=== PATIENT | male | born 1965 | race African-American/Black ===

== ENCOUNTER 2019-12-20 13:06 | Inpatient (IN) | payer BC, OTHER ==
--- NOTE | 2019-12-20 13:34 | BHS.RME ---
Substance Use & Tx History - Substance Use History Alcohol Substance amount: 3 beers x 24 ounces Frequency of use: Daily Substance route: Oral Date of Last Use: 12/20/19 Heroin Substance amount: 2 bags Frequency of use: Less than 5 times a year Date of Last Use: 12/13/19 (first use one week ago) Cocaine-Crack Substance amount: $100 Frequency of use: Daily Substance route: Smoking Date of Last Use: 12/19/19 Cannabis Substance amount: 3 pulls Frequency of use: More than 3 times per week Substance route: Smoking Date of Last Use: 12/18/19 Nicotine Substance amount: 1.5 packs Frequency of use: Daily Substance route: Smoking Date of Last Use: 12/20/19 Physical/Psych/Mental Status - Behavior General Behavior: Increased activity (restlessness, agitation) Eye Contact: Normal - Cooperativeness Cooperativeness: Cooperative - Thinking Thought Processes: Tight Thought content: Future oriented - Physical Health Problems Is patient presently having any pain?: Yes (low back pain, began today) Does patient presently have any injuries (include location): No Does patient currently have a fever: No COWS - Scale Resting Pulse: 1= [place] 81-100 Sweatin= No chills or Flushing Restless Observation: 1= Difficult to Sit Still Pupil Size: 0= Normal to Room Light Bone or Joint Aches: 1= Mild Discomfort Runny Nose/ Eye Tearin= None GI Upset > 30mins: 0= None Tremor Observation: 0= None Yawning Observation: 0= None Anxiety or Irritability: 1=Feels Anxious/Irritable Goose Flesh Skin: 0=Smooth Skin COWS Score: 4 CIWA Nausea/Vomitin-No Nausea/No Vomiting Muscle Tremors: None Anxiety: 1-Mildly Anxious Agitation: 1-Slight > Activity Paroxysmal Sweats: No Perspiration Orientation: 0-Oriented Tacttile Disturbances: 0-None Auditory Disturbances: 0-None Visual Disturbances: 0-None Headache: 0-None Present CIWA-Ar Total Score: 2
--- NOTE | 2019-12-20 15:16 | HP ---
<Javi Cote - Last Filed: 12/20/19 15:44> COWS - Scale Resting Pulse: 1= [place] 81-100 Sweatin= No chills or Flushing Restless Observation: 0= Sits Still Pupil Size: 0= Normal to Room Light Bone or Joint Aches: 1= Mild Discomfort Runny Nose/ Eye Tearin= Runny Nose/Eyes GI Upset > 30mins: 0= None Tremor Observation: 0= None Yawning Observation: 0= None Anxiety or Irritability: 0= None Goose Flesh Skin: 0=Smooth Skin COWS Score: 4 CIWA Score Nausea/Vomitin-No Nausea/No Vomiting Muscle Tremors: None Anxiety: 1-Mildly Anxious Agitation: 1-Slight > Activity Paroxysmal Sweats: No Perspiration Orientation: 0-Oriented Tacttile Disturbances: 0-None Auditory Disturbances: 0-None Visual Disturbances: 0-None Headache: 0-None Present CIWA-Ar Total Score: 2 - Admission Criteria OASAS Guidelines: Admission for Medically Managed Detox: Requires at least one of the followin. CIWA greater than 12 2. Seizures within the past 24 hours 3. Delirium tremens within the past 24 hours 4. Hallucinations within the past 24 hours 5. Acute intervention needed for co occurring medical disorder 6. Acute intervention needed for co occurring psychiatric disorder 7. Severe withdrawal that cannot be handled at a lower level of care (continued vomiting, continued diarrhea, abnormal vital signs) requiring intravenous medication and/or fluids 8. Admitting History and Physical - Admission Chief Complaint: Patient presents to [facility] requestion for rehab. He has just completed detox. History of Present Illness: Patient presents to [facility] requestion for rehab. He has just completed detox. PMH: NONE PSH:NONE PSYCH:Bipolar,schizophrenia,prelexa compliant SOCIAL/DOMICILED: [facility] in [place] LEGAL:None Substance Use & Tx History - Substance Use History Alcohol Substance amount: 3 beers x 24 ounces Frequency of use: Daily Substance route: Oral Date of Last Use: 12/20/19 First use, age 14 Heroin Substance amount: 2 bags Frequency of use: Less than 5 times a year Date of Last Use: 12/13/19 first use was last week Cocaine-Crack Substance amount: $100 Frequency of use: Daily Substance route: Smoking Date of Last Use: 12/19/19 First use, 17 Cannabis Substance amount: 3 pulls Frequency of use: More than 3 times per week Substance route: Smoking Date of Last Use: 12/18/19 First use, age 13 Nicotine Substance amount: 1.5 packs Frequency of use: Daily Substance route: Smoking Date of Last Use: 12/20/19 First use, age 15 History Source: Patient Limitations to Obtaining History: No Limitations - Smoking History Smoking history: Current every day smoker Have you smoked in the past 12 months: Yes Aproximately how many cigarettes per day: 1.5 - Alcohol/Substance Use Hx Alcohol Use: Yes Number of Drinks Daily: 3 (beer) History of Substance Use: reports: Cocaine Date of Last Use: 12/19/19 (crack) - Social History Usual Living Arrangement: Yes: Other ([facility]) Admission [facility] - [facility] Chief Complaint: Patient presents to [facility] today requestion for rehab. He has just completed detox. Patient History - Smoking Cessation Smoking history: Current every day smoker Have you smoked in the past 12 months: Yes Aproximately how many cigarettes per day: 1.5 Cigars Per Day: 30 Hx Chewing Tobacco Use: No Initiated information on smoking cessation: Yes 'Breaking Loose' booklet given: 12/20/19 Admission Physical Exam [facility] Physical General Appearance: Yes: Within Normal Limits, No Apparent Distress, Nourished, Appropriately Dressed, Intoxicated HEENTM: Yes: Within Normal Limits, EOMI, Normal ENT Inspection, Normocephalic, Normal Voice, BRIANNA Respiratory: Yes: Within Normal Limits, Chest Non-Tender, Lungs Clear, Normal Breath Sounds, No Respiratory Distress, No Accessory Muscle Use Neck: Yes: Within Normal Limits, No masses,lesions,Nodules, Trachea in good position Breast: Yes: Breast Exam Deferred Cardiology: Yes: Within Normal Limits, Regular Rhythm, Regular Rate, S1, S2 Abdominal: Yes: Within Normal Limits, Normal Bowel Sounds, Non Tender, Flat, Soft Genitourinary: Yes: Within Normal Limits Back: Yes: Within Normal Limits, Normal Inspection Musculoskeletal: Yes: Within Normal Limits, full range of Motion, Gait Steady, Back pain (complains of mild back pain right above left ischial tuberosity) Extremities: Yes: Within Normal Limits, Normal Capillary Refill, Normal Inspection, Normal Range of Motion, Non-Tender Neurological: Yes: Within Normal Limits, Fully Oriented, Alert, Motor Strength 5/5 Integumentary: Yes: Within Normal Limits, Normal Color - Diagnostic (1) Alcohol dependence, uncomplicated Current Visit: Yes Status: Chronic (2) Heroin dependence Current Visit: Yes Status: Chronic (3) Crack cocaine use Current Visit: Yes Status: Chronic (4) Marijuana dependence Current Visit: Yes Status: Chronic (5) Nicotine dependence Current Visit: Yes Status: Chronic Qualifiers: Nicotine product type: cigarettes Substance use status: uncomplicated Qualified Code(s): F17.210 - Nicotine dependence, cigarettes, uncomplicated (6) Bipolar 1 disorder Current Visit: Yes Status: Chronic (7) Schizophrenia Current Visit: Yes Status: Chronic Cleared for Admission [facility] - Detox or Rehab S Level of Care: Medically Supervised Detox Regimen/Protocol: Not Applicable Claeared for Rehab Admission: Yes Screened but not Admitted - Documentation of Visit Screened but not Admitted: No Left Prior to Completion of Assessment: No Insurance Authorization Denied: No Patient Does Not Meet Criteria for Admission: No Level of Care Recommended at this Time: Other ([facility] rehab admission) Alternative Treatment/Assisted Info Provided: No Breathalyzer - Breathalyzer Breathalyzer: 0 Urine Drug Screen - Test Device Lot number: [id number] Expiration date: 02/05/21 - Control Is test valid?: Yes - Results Drug screen NEGATIVE: No Urine drug screen results: GONZALO-Cocaine Inpatient Rehab Admission - Rehab Decision to Admit Inpatient rehab admission?: Yes - Initial Determination Are CD services needed?: Yes Free of communicable disease: Yes Not in need of hospitalization: Yes - Rehab Admission Criteria Previous failed treatment: Yes Poor recovery environment: Yes Comorbidities: Yes Lacks judgement: No Patient is meeting Inpatient Rehab admission criteria:: Yes <Elizabeth Bender - Last Filed: 12/22/19 14:34> CIWA Score - Admission Criteria OASAS Guidelines: Admission for Medically Managed Detox: Requires at least one of the followin. CIWA greater than 12 2. Seizures within the past 24 hours 3. Delirium tremens within the past 24 hours 4. Hallucinations within the past 24 hours 5. Acute intervention needed for co occurring medical disorder 6. Acute intervention needed for co occurring psychiatric disorder 7. Severe withdrawal that cannot be handled at a lower level of care (continued vomiting, continued diarrhea, abnormal vital signs) requiring intravenous medication and/or fluids 8. Admission ROS [facility] - HPI Exam Limitations: No Limitations - Ebola screening Have you traveled outside of the country in the last 21 days: No Have you been sick,other than usual withdrawal symptoms: No Do you have a fever: No - Review of Systems Constitutional: No Symptoms Reported EENT: reports: No Symptoms Reported Respiratory: reports: No Symptoms reported Cardiac: reports: No Symptoms Reported GI: reports: Nausea, Vomiting : reports: No Symptoms Reported Musculoskeletal: reports: Back Pain Endocrine: reports: No Symptoms Reported Psychiatric: reports: Anxious Admission Physical Exam S - Vital Signs Vital Signs: Vital Signs - 24 hr 12/21/19 12/22/19 12/22/19 20:25 07:13 07:15 Temperature 97.3 F L Pulse Rate 73 Respiratory 16 Rate Blood Pressure 132/89 O2 Sat by Pulse 97 98 98 Oximetry (%) 12/22/19 14:32 Temperature Pulse Rate Respiratory Rate Blood Pressure O2 Sat by Pulse 98 Oximetry (%)
[2019-12-20] MEDS ORDERED: ACETAMINOPHEN 325 MG TABLET (FP) PO PRN (15:50)
[2019-12-20] MEDS ORDERED: IBUPROFEN 400 MG TABLET (FP) PO PRN (15:50)
[2019-12-20] MEDS ORDERED: NICOTINE POLACRILEX 2 MG GUM BC PRN (15:50)
[2019-12-20] MEDS ORDERED: MAGNESIUM CITRATE 300 ML BOTTLE PO PRN (15:50)
[2019-12-20] MEDS ORDERED: guaiFENesin 200 MG/10 ML 10 ML UNIT-DOSE CUPS PO PRN (15:50)
[2019-12-20] MEDS ORDERED: LOPERAMIDE HCL 2 MG CAPSULE PO PRN (15:50)
[2019-12-20] MEDS ORDERED: P-EPHED 60MG/TRIPROLIDI 2.5MG TABLET PO PRN (15:50)
[2019-12-20] MEDS ORDERED: MAGNESIUM HYDROX 2400MG/30ML ORAL SUSPENSION 30 ML CUP PO PRN (15:50)
[2019-12-20] MEDS ORDERED: MAG HYDROX/AL HYDROX/SIMETH 30 ML UNIT-DOSE CUP PO PRN (15:50)
[2019-12-20 16:16] VITALS: BMI 29.2
[2019-12-20] MEDS ORDERED: TUBERCULIN PPD 5 TU/0.1ML VIAL ID ONE (18:22)
[2019-12-20] MEDS: hydrOXYzine PAMOATE 25 MG CAPSULE (FP) PO SCH ×2 (18:36→21:37)
[2019-12-20] MEDS: NICOTINE 21 MG/24 HOURS TOPICAL PATCH TD SCH (18:36)
[2019-12-20] MEDS: THIAMINE HCL 100 MG TABLET (FP) PO SCH (21:36)
[2019-12-20] MEDS: MELATONIN 5 MG TABLETS PO SCH (21:37)
[2019-12-20 23:14] LABS: PH,URINE 5.5 (5.0-8.0); URINE APPEARANCE CLEAR; URINE BILIRUBIN NEGATIVE (NEGATIVE); URINE COLOR YELLOW; URINE GLUCOSE (UA) NEGATIVE (NEGATIVE); URINE KETONE NEGATIVE (NEGATIVE); URINE LEUK ESTERASE NEGATIVE (NEGATIVE); URINE NITRITE NEGATIVE (NEGATIVE); URINE PROTEIN NEGATIVE (NEGATIVE); URINE UROBILINOGEN 0.2 mg/dL (0.2-1.0)
[2019-12-21] MEDS: hydrOXYzine PAMOATE 25 MG CAPSULE (FP) PO SCH ×3 (06:10→13:06)
--- NOTE | 2019-12-21 09:34 | CONSULT ---
[facility] Psychiatric Consult - Data Date of interview: 12/21/19 Admission source: [facility] Identifying data: Mr Yousif is a 54 years old Black male, unemployed receiving SSD living in an SRO referred from [facility] on 12/20/19 for inpatient rehabilitation treatment for alcohol, opioid, cocaine and cannabis Substance Abuse History: Reports history of alcohol, heroin, crack cocaine and marijuana use. refer to addiction counselor's summary for further information Medical History: Unremarkable. Smokes cigaettes 1.5 ppd Psychiatric History: This is patient's first admission to this faciliy. He reports that his firt psychiatric contact occured at age 16 when he was admitted to [facility] in [place], [place] for paranoid delusions. He was diagnosed with Schizophrenia and started on Fluphenazine. Reports multiple subsequent psychiatric hospitalizations at various institutions including [facility], [facility] and [facility]. Reports that dana arevalo currently sees a staff psychiatrist on site at his residence([facility]) and he is prescribed Fluphenazine 2.5 mg/bid. Denies previous suicidal attempt. At present, denies experiencing psychotic symptoms, S/H ideations. However, reports sleping porly Physical/Sexual Abuse/Trauma History: Denies history of abuse as a child or DV relationship as an adult Mental Status Exam - Mental Status Exam Alert and Oriented to: Time, Place, Person Cognitive Function: Fair Patient Appearance: Disheveled Mood: Hopeful, Euthymic Affect: Appropriate Patient Behavior: Cooperative Speech Pattern: Clear Voice Loudness: Normal Thought Process: Intact, Goal Oriented Hallucinations: Denies Suicidal Ideation: Denies Homicidal Ideation: Denies Insight/Judgement: Poor Sleep: Poorly Appetite: Good Muscle strength/Tone: Normal Gait/Station: Normal Psychiatric Findings - Problem List (Sayre 1, 2,3) (1) Paranoid schizophrenia Current Visit: Yes Status: Chronic (2) Substance-induced sleep disorder Current Visit: Yes Status: Acute (3) Alcohol dependence, uncomplicated Current Visit: Yes Status: Acute (4) Opioid dependence Current Visit: Yes Status: Acute (5) Cocaine dependence Current Visit: Yes Status: Acute (6) Cannabis dependence Current Visit: Yes Status: Acute (7) Nicotine dependence Current Visit: Yes Status: Chronic Qualifiers: Nicotine product type: cigarettes Substance use status: uncomplicated Qualified Code(s): F17.210 - Nicotine dependence, cigarettes, uncomplicated - Initial Treatment Plan Initial Treatment Plan: 1) Continue Flupenazine 2.5 mg po BID. 2) Continue inpatient rehabilitation
[2019-12-21] MEDS: PRENATAL VITAMINS W/ FOLIC ACID TABLET (FP) PO SCH (09:54)
[2019-12-21] MEDS: NICOTINE 21 MG/24 HOURS TOPICAL PATCH TD SCH (09:55)
[2019-12-21 11:22] LABS: HEMATOCRIT 44.8 % (35.4-49); HEMOGLOBIN 14.8 GM/dL (11.7-16.9); MCH 32.9 pg (25.7-33.7); MCHC 33.1 g/dl (32.0-35.9); MEAN CELL VOLUME 99.6 fl (80-96); RDW 13.8 % (11.9-15.9); WHITE BLOOD COUNT 9.1 K/mm3 (4.0-10.0)
[2019-12-21 11:28] LABS: ALBUMIN 3.8 g/dl (3.4-5.0); BILIRUBIN,TOTAL 0.2 mg/dL (0.2-1); CALCIUM 8.7 mg/dL (8.5-10.1); POTASSIUM 3.9 mmol/L (3.5-5.1); TOT PROT 6.9 g/dl (6.4-8.2)
[2019-12-21 12:23] LABS: SICKLE CELL SCREEN NEGATIVE (NEGATIVE)
[2019-12-21] MEDS: hydrOXYzine PAMOATE 25 MG CAPSULE (FP) PO PRN (21:14)
[2019-12-21] MEDS: THIAMINE HCL 100 MG TABLET (FP) PO SCH (21:14)
[2019-12-21] MEDS: MELATONIN 5 MG TABLETS PO SCH (21:14)
[2019-12-22] MEDS: NICOTINE 21 MG/24 HOURS TOPICAL PATCH TD SCH (09:44)
[2019-12-22] MEDS: PRENATAL VITAMINS W/ FOLIC ACID TABLET (FP) PO SCH (09:45)
[2019-12-22] MEDS: hydrOXYzine PAMOATE 25 MG CAPSULE (FP) PO PRN (18:04)
[2019-12-22] MEDS ORDERED: PT OWN MED DRAWER 7, Y5N ONE (20:31)
[2019-12-22] MEDS: THIAMINE HCL 100 MG TABLET (FP) PO SCH (21:44)
[2019-12-22] MEDS: MELATONIN 5 MG TABLETS PO SCH (21:44)
[2019-12-23] MEDS ORDERED: PT OWN MED DRAWER 7, Y5N ONE ×2 (08:22→19:21)
[2019-12-23] MEDS: NICOTINE 21 MG/24 HOURS TOPICAL PATCH TD SCH (09:23)
[2019-12-23] MEDS: PRENATAL VITAMINS W/ FOLIC ACID TABLET (FP) PO SCH (09:23)
--- NOTE | 2019-12-23 16:18 | PN ---
Psychiatric Progress Note Vital Signs: Vital Signs Period Temp Pulse Resp BP Sys/Reyes Pulse Ox Last 24 Hr 97.1 F 76 18 127/77 96-98 Date of Session: 12/23/19 Chief Complaint:: "i'm not sleeping well." HPI: Patient admitted to [facility] for treatment of alcohol, opioid, cocaine and cannabis dependence. Consultation ordered due to patient c/o insomnia. ROS: Patient laying in bed. Alert +oriented X3. Current Medications: Active Medications Generic Name Dose Route Start Last Admin Trade Name Freq PRN Reason Stop Dose Admin Acetaminophen 650 mg 12/20/19 15:50 Tylenol - PO Q4H PRN FEVER Al Hydroxide/Mg Hydroxide 30 ml 12/20/19 15:50 Mylanta Oral Suspension - PO Q6H PRN DYSPEPSIA Fluphenazine HCl 2.5 mg 12/21/19 10:00 12/23/19 09:23 Prolixin - PO 2.5 mg BID GADIEL Administration Guaifenesin 10 ml 12/20/19 15:50 Robitussin - PO Q6H PRN COUGH Hydroxyzine Pamoate 25 mg 12/21/19 13:15 12/22/19 18:04 Vistaril - PO 25 mg Q4HWA PRN Administration ANXIETY Ibuprofen 400 mg 12/20/19 15:50 Motrin - PO Q6H PRN Pain level 4-6 Loperamide HCl 4 mg 12/20/19 15:50 Imodium - PO Q6H PRN DIARRHEA Magnesium Citrate 300 ml 12/20/19 15:50 Citroma - PO Q48H PRN CONSTIPATION Magnesium Hydroxide 30 ml 12/20/19 15:50 Milk Of Magnesia - PO DAILY PRN CONSTIPATION Melatonin 5 mg 12/20/19 22:00 12/22/19 21:44 Melatonin PO 5 mg HS GADIEL Administration Nicotine 21 mg 12/20/19 16:00 12/23/19 09:23 Nicoderm Patch - TD 21 mg DAILY GADIEL Administration Nicotine Polacrilex 2 mg 12/20/19 15:50 Nicorette Gum - BC Q2H PRN NICOTINE REPLACEMENT RX Multivit/Folic Acid/Iron 1 tab 12/21/19 10:00 12/23/19 09:23 Vitamins (Sjr) - PO 1 tab DAILY GADIEL Administration Pseudoephedrine/Triprolidine 1 combo 12/20/19 15:50 Actifed - PO TID PRN NASAL CONGESTION Thiamine HCl 100 mg 12/20/19 22:00 12/22/19 21:44 Vitamin B1 - PO 100 mg HS GADIEL Administration Medication(s) Change(s): Yes. Will add Belsomra 10mg HS PRN. Current Side Effect: No Lab tests ordered: No Lab tests reviewed: Yes Provider note:: Chart reviewed. Dr. Cox's note read and appreciated. Mr. Yousif reports difficulty sleeping. Medications reviewed. Will order Belsomra 10mg HS PRN. Patient educated on the importance of proper sleep hygiene. Patient satisifed and receptive to feedback. Benefits and side effects discussed. Verbal consent given. Total face to face time:: 20 Mental Status Exam - Mental Status Exam Alert and Oriented to: Time, Place, Person Cognitive Function: Good Patient Appearance: Well Groomed Mood: Hopeful Affect: Mood Congruent Patient Behavior: Cooperative Speech Pattern: Appropriate Voice Loudness: Normal Thought Process: Goal Oriented Thought Disorder: Not Present Hallucinations: Denies Suicidal Ideation: Denies Homicidal Ideation: Denies Insight/Judgement: Poor Sleep: Poorly Appetite: Fair Muscle strength/Tone: Normal Gait/Station: Normal Psychiatric Treatment Plan - Problem List (1) Alcohol dependence, uncomplicated Current Visit: Yes (2) Cannabis dependence Current Visit: Yes (3) Cocaine dependence Current Visit: Yes (4) Opioid dependence Current Visit: Yes (5) Substance-induced sleep disorder Current Visit: Yes (6) Paranoid schizophrenia Current Visit: Yes
[2019-12-23] MEDS: MELATONIN 5 MG TABLETS PO SCH (21:30)
[2019-12-23] MEDS: THIAMINE HCL 100 MG TABLET (FP) PO SCH (21:31)
[2019-12-24] MEDS ORDERED: PT OWN MED DRAWER 7, Y5N ONE (08:48)
[2019-12-24] MEDS: PRENATAL VITAMINS W/ FOLIC ACID TABLET (FP) PO SCH (09:35)
[2019-12-24] MEDS: NICOTINE 21 MG/24 HOURS TOPICAL PATCH TD SCH (09:35)
[2019-12-24] MEDS: THIAMINE HCL 100 MG TABLET (FP) PO SCH (21:26)
[2019-12-24] MEDS: MELATONIN 5 MG TABLETS PO SCH (21:27)
[2019-12-24] MEDS: hydrOXYzine PAMOATE 25 MG CAPSULE (FP) PO PRN (21:27)
[2019-12-24] MEDS: SUVOREXANT 10 MG TABLET PO PRN (21:30)
[2019-12-25] MEDS: PRENATAL VITAMINS W/ FOLIC ACID TABLET (FP) PO SCH (09:36)
[2019-12-25] MEDS ORDERED: PT OWN MED DRAWER 7, Y5N ONE ×2 (09:37→21:38)
[2019-12-25] MEDS: NICOTINE 21 MG/24 HOURS TOPICAL PATCH TD SCH (09:38)
[2019-12-25] MEDS: THIAMINE HCL 100 MG TABLET (FP) PO SCH (21:35)
[2019-12-25] MEDS: MELATONIN 5 MG TABLETS PO SCH (21:36)
[2019-12-25] MEDS: SUVOREXANT 10 MG TABLET PO PRN (21:36)
[2019-12-26] MEDS: NICOTINE 21 MG/24 HOURS TOPICAL PATCH TD SCH (10:19)
[2019-12-26] MEDS: PRENATAL VITAMINS W/ FOLIC ACID TABLET (FP) PO SCH (10:19)
[2019-12-26] MEDS: THIAMINE HCL 100 MG TABLET (FP) PO SCH (21:01)
[2019-12-26] MEDS: MELATONIN 5 MG TABLETS PO SCH (21:02)
[2019-12-26] MEDS: hydrOXYzine PAMOATE 25 MG CAPSULE (FP) PO PRN (21:02)
[2019-12-26] MEDS: SUVOREXANT 10 MG TABLET PO PRN (21:03)
[2019-12-27] MEDS ORDERED: PT OWN MED DRAWER 7, Y5N ONE (08:16)
[2019-12-27] MEDS: NICOTINE 21 MG/24 HOURS TOPICAL PATCH TD SCH (09:36)
[2019-12-27] MEDS: PRENATAL VITAMINS W/ FOLIC ACID TABLET (FP) PO SCH (09:36)
[2019-12-27] MEDS: THIAMINE HCL 100 MG TABLET (FP) PO SCH (21:45)
[2019-12-27] MEDS: MELATONIN 5 MG TABLETS PO SCH (21:45)
[2019-12-27] MEDS: hydrOXYzine PAMOATE 25 MG CAPSULE (FP) PO PRN (21:46)
[2019-12-28 06:51] VITALS: BP 102/70; PULSE 90; TEMP 97.1
--- NOTE | 2019-12-28 08:56 | PN ---
[facility] Progress Note Note: Patient is discharged today. Script for 30 days supply of Prolixin HCL 2.5 mg/bid is electronically transmitted to [facility], [address] [place] [id number]
[2019-12-28] MEDS: NICOTINE 21 MG/24 HOURS TOPICAL PATCH TD SCH (09:31)
[2019-12-28] MEDS: PRENATAL VITAMINS W/ FOLIC ACID TABLET (FP) PO SCH (09:32)
--- NOTE | 2019-12-28 09:56 | DS ---
[facility] Rehab Discharge Summary - [facility] Rehab Discharge Summary Admission Date: 12/20/19 Discharge Date: 12/28/19 - History Present History: Alcohol dependence, Cannabis dependence, Cocaine dependence, Opioid dependence Pertinent Past History: Patient presented to [facility] after completing detox. PMH: NONE PSH:NONE PSYCH:Bipolar,schizophrenia,prelexa compliant SOCIAL/DOMICILED: SRO in [place] LEGAL:None - Discharge Physical Exam Vital Signs: Vital Signs Temperature 97.1 F L 12/28/19 06:50 Pulse Rate 90 12/28/19 06:50 Respiratory Rate 18 12/28/19 06:50 Blood Pressure 102/70 12/28/19 06:50 O2 Sat by Pulse Oximetry (%) 96 12/28/19 06:50 Pertinent Admission Physical Exam Findings: Physical General Appearance: No Apparent Distress HEENTM:EOMI, Normocephalic, BRIANNA Respiratory: No Respiratory Distress, No Accessory Muscle Use Neck: supple Musculoskeletal: full range of Motion, Gait Steady, Neurological: Fully Oriented, Alert, Motor Strength 5/5 - Treatment Discharge Condition: Outpatient referral accepted (Patient will go to the [facility]. medically stable for discharge.) Hospital Course: patient attended groups, had 1:1 with his counselor, was seen by the psychiatric service. He was adherent to his medication regimen and treatment plan. He had not acute or urgent medical problems while in rehab. - Medication Discharge Medications: Ambulatory Orders Fluphenazine HCl [Prolixin -] 2.5 mg PO BID #60 tablet 12/28/19 - Discharge Instructions Diet, activity, other medical instructions: Diet: as tolerated Activity: as tolerated Other medical instructions: Please follow up with discharge referral to [facility]. - Diagnosis (1) Alcohol dependence, uncomplicated Current Visit: Yes Status: Chronic (2) Cannabis dependence Current Visit: Yes Status: Chronic (3) Cocaine dependence Current Visit: Yes Status: Chronic (4) Opioid dependence Current Visit: Yes Status: Chronic (5) Heroin dependence Current Visit: Yes Status: Chronic (6) Crack cocaine use Current Visit: Yes Status: Chronic (7) Marijuana dependence Current Visit: Yes Status: Chronic - Follow-up Referral Minutes to complete discharge: 15 - AMA Did Patient Leave Against Medical Advice: No
== END 2019-12-28 10:54 | disposition home or self-care (01) | DRG 895 ==
LOC: YASAS 13:06 → Y3E 15:06
PROVIDERS: ADMIT Allergy & Immunology; ATTEND Allergy & Immunology
PROC: HZ42ZZZ Group Counseling for Substance Abuse Treatment, Cognitive-Behavioral (ICD-10-PCS; principal; 2019-12-20)
DX: F10.20 Alcohol dependence, uncomplicated (principal); F11.20 Opioid dependence, uncomplicated; F14.20 Cocaine dependence, uncomplicated; F20.0 Paranoid schizophrenia; F31.89 Other bipolar disorder; F19.282 Other psychoactive substance dependence with psychoactive substance-induced sleep disorder; F12.20 Cannabis dependence, uncomplicated; F17.210 Nicotine dependence, cigarettes, uncomplicated
CPT/HCPCS: 36415; 80053; 81003; 85027; 85660; 86780

== ENCOUNTER 2022-03-10 15:55 | Inpatient (IN) | payer OTHER ==
[2022-03-10 17:51] VITALS: BMI 26.7
[2022-03-10] MEDS ORDERED: NALOXONE HCL (KLOXXADO) 8 MG SPRAY NS PRN (18:36)
[2022-03-10] MEDS ORDERED: MAGNESIUM CITRATE 300 ML BOTTLE PO PRN (18:36)
[2022-03-10] MEDS ORDERED: IBUPROFEN 600 MG TABLET (FP) PO PRN (18:36)
[2022-03-10] MEDS ORDERED: IBUPROFEN 400 MG TABLET (FP) PO PRN (18:36)
[2022-03-10] MEDS ORDERED: DICYCLOMINE HCL 10 MG CAPSULE PO PRN (18:36)
[2022-03-10] MEDS ORDERED: BISMUTH SUBSALICYLATE 524 MG/30 ML PO PRN (18:36)
[2022-03-10] MEDS ORDERED: ONDANSETRON *ODT* 4 MG TABLET SL PRN (18:36)
[2022-03-10] MEDS ORDERED: BENZOCAINE/MENTHOL (CHLORASEPTIC ) LOZENGE MM PRN (18:36)
[2022-03-10] MEDS ORDERED: MAGNESIUM HYDROX 2400MG/30ML ORAL SUSPENSION 30 ML CUP PO PRN (18:36)
[2022-03-10] MEDS ORDERED: NICOTINE 10 MG CARTRIDGE (INHALER) IH PRN (18:36)
[2022-03-10] MEDS ORDERED: LOPERAMIDE HCL 2 MG CAPSULE PO PRN (18:36)
[2022-03-10] MEDS ORDERED: NICOTINE POLACRILEX 4 MG GUM BUC PRN (18:36)
[2022-03-10] MEDS ORDERED: MAG HYDROX/AL HYDROX/SIMETH 30 ML UNIT-DOSE CUP PO PRN (18:36)
[2022-03-10] MEDS ORDERED: ACETAMINOPHEN 325 MG TABLET (FP) PO PRN ×2 (18:36)
[2022-03-10] MEDS: PRENATAL VITAMINS W/ FOLIC ACID TABLET (FP) PO SCH (20:05)
[2022-03-10] MEDS: NICOTINE 21 MG/24 HOURS TOPICAL PATCH TD SCH (20:05)
[2022-03-10] MEDS: METHOCARBAMOL 500 MG TABLET PO PRN (22:56)
[2022-03-10] MEDS: MELATONIN 5 MG TABLETS PO SCH (22:56)
[2022-03-10] MEDS: THIAMINE HCL 100 MG TABLET (FP) PO SCH (22:56)
[2022-03-10] MEDS: hydrOXYzine PAMOATE 25 MG CAPSULE (FP) PO SCH (22:56)
[2022-03-11] MEDS: hydrOXYzine PAMOATE 25 MG CAPSULE (FP) PO SCH ×5 (05:54→22:23)
[2022-03-11] MEDS: NICOTINE 21 MG/24 HOURS TOPICAL PATCH TD SCH (10:17)
[2022-03-11] MEDS: METHOCARBAMOL 500 MG TABLET PO PRN (10:18)
[2022-03-11] MEDS: PRENATAL VITAMINS W/ FOLIC ACID TABLET (FP) PO SCH (10:18)
[2022-03-11] MEDS: diazePAM 5 MG TABLET PO SCH ×4 (10:47→22:24)
[2022-03-11 11:23] LABS: HEMATOCRIT 44.6 % (35.4-49); HEMOGLOBIN 15.2 GM/dL (11.7-16.9); MCH 33.5 pg (25.7-33.7); MEAN CELL VOLUME 98.7 fl (80-96); MEAN PLT VOLUME 7.6 fl (7.5-11.1); PLATELET COUNT 328 10^3/uL (134-434); RBC 4.52 M/mm3 (4.00-5.60); RDW 13.1 % (11.9-15.9); WHITE BLOOD COUNT 8.9 K/mm3 (4.0-10.0)
[2022-03-11 11:25] LABS: ALBUMIN 3.8 g/dl (3.4-5.0); BLOOD UREA NITROGEN 10.6 mg/dL (7-18)
[2022-03-11 11:30] LABS: BILIRUBIN,TOTAL 0.6 mg/dL (0.2-1); CREATININE 0.9 mg/dL (0.55-1.3); TOT PROT 6.6 g/dl (6.4-8.2)
[2022-03-11] MEDS: amLODIPine BESYLATE 5 MG TABLET (FP) PO SCH (11:30)
[2022-03-11 12:18] LABS: HIV INTERPRETATION NEGATIVE (NEGATIVE)
[2022-03-11] MEDS: THIAMINE HCL 100 MG TABLET (FP) PO SCH (22:24)
[2022-03-11] MEDS: MELATONIN 5 MG TABLETS PO SCH (22:24)
[2022-03-12] MEDS: hydrOXYzine PAMOATE 25 MG CAPSULE (FP) PO SCH ×5 (05:59→22:21)
[2022-03-12] MEDS: diazePAM 5 MG TABLET PO SCH ×3 (06:00→22:20)
[2022-03-12] MEDS: amLODIPine BESYLATE 5 MG TABLET (FP) PO SCH (10:08)
[2022-03-12] MEDS: PRENATAL VITAMINS W/ FOLIC ACID TABLET (FP) PO SCH (10:08)
[2022-03-12] MEDS: NICOTINE 21 MG/24 HOURS TOPICAL PATCH TD SCH (10:08)
[2022-03-12] MEDS: diazePAM 5 MG TABLET PO PRN (11:35)
[2022-03-12] MEDS: THIAMINE HCL 100 MG TABLET (FP) PO SCH (22:20)
[2022-03-12] MEDS: MELATONIN 5 MG TABLETS PO SCH (22:21)
[2022-03-13] MEDS: hydrOXYzine PAMOATE 25 MG CAPSULE (FP) PO SCH ×5 (05:23→22:27)
[2022-03-13] MEDS: diazePAM 5 MG TABLET PO SCH ×2 (05:23→18:45)
[2022-03-13] MEDS: NICOTINE 21 MG/24 HOURS TOPICAL PATCH TD SCH (10:20)
[2022-03-13] MEDS: METHOCARBAMOL 500 MG TABLET PO PRN (10:21)
[2022-03-13] MEDS: diazePAM 5 MG TABLET PO PRN (10:21)
[2022-03-13] MEDS: PRENATAL VITAMINS W/ FOLIC ACID TABLET (FP) PO SCH (10:21)
[2022-03-13] MEDS: amLODIPine BESYLATE 5 MG TABLET (FP) PO SCH (10:21)
[2022-03-13] MEDS: THIAMINE HCL 100 MG TABLET (FP) PO SCH (22:27)
[2022-03-13] MEDS: MELATONIN 5 MG TABLETS PO SCH (22:28)
[2022-03-14] MEDS: hydrOXYzine PAMOATE 25 MG CAPSULE (FP) PO SCH ×3 (05:21→14:43)
[2022-03-14] MEDS ORDERED: diazePAM 5 MG TABLET PO ONE (06:00)
[2022-03-14 08:50] VITALS: RESP 18
[2022-03-14] MEDS: PRENATAL VITAMINS W/ FOLIC ACID TABLET (FP) PO SCH (10:30)
[2022-03-14] MEDS: amLODIPine BESYLATE 5 MG TABLET (FP) PO SCH (10:30)
[2022-03-14] MEDS: NICOTINE 21 MG/24 HOURS TOPICAL PATCH TD SCH (10:30)
[2022-03-14 12:36] VITALS: BP 123/81; PULSE 92; TEMP 97.5
== END 2022-03-14 15:15 | disposition other institution (70) | DRG 897 ==
LOC: YASAS 15:55 → Y6N 19:08
PROVIDERS: ADMIT Allergy & Immunology; ATTEND Surgery
PROC: HZ2ZZZZ Detoxification Services for Substance Abuse Treatment (ICD-10-PCS; principal; 2022-03-11)
DX: F10.230 Alcohol dependence with withdrawal, uncomplicated (principal); F14.20 Cocaine dependence, uncomplicated; F19.282 Other psychoactive substance dependence with psychoactive substance-induced sleep disorder; F20.0 Paranoid schizophrenia; F12.20 Cannabis dependence, uncomplicated; F17.210 Nicotine dependence, cigarettes, uncomplicated; F31.9 Bipolar disorder, unspecified; F19.24 Other psychoactive substance dependence with psychoactive substance-induced mood disorder; Z87.19 Personal history of other diseases of the digestive system
CPT/HCPCS: 36415; 71046-TC-FY; 80053; 85027; 86780; 87389; C9803-CS; U0003; U0005